=== PATIENT | female | born 1980 | race Hispanic/Latino ===

== ENCOUNTER 2023-07-29 03:02 | Day surgery (SDC) | payer OTHER, SELFPAY ==
--- NOTE | 2023-07-21 13:03 | PC.NURSE ---
Report to the Outpatient Waiting Room, entrance under the green pavilion located off [facility], at time _0730 on date _07/29/23 . Planned Procedure Time: _929 . Time changes happen often and if your time is changed the preop area will call you the afternoon before. - You and your visitor will be asked to self-screen and do not enter if you have any COVID symptoms. - A mask is optional within the hospital at this time. Patients may have clear liquids (water, carbonated beverages, clear teas, apple juice) until 3 hours prior to surgery(6:30 AM) with a maximum of 20 ounces. - No food from midnight until time of surgery - Infants may have breast milk until 4 hours before surgery, formula 6 hours prior to surgery. - Children will be allowed to drink immediately following surgery. If applicable, please bring a bottle or sippy cup to assist with drinking. Juice, water, soda, and popsicles are readily available. For infants on formula, please bring formula the day of surgery. Pacifiers are allowed. Take the following medications with a SIP of water the morning of surgery: ____NONE DO NOT STOP ANY OF YOUR OTHER PRESCRIPTION MEDICATIONS PRIOR TO SURGERY ?EXCEPT THE FOLLOWING Medications to discontinue per physician ___HOLD VITAMIN 3 DAYS PRE OP .LAST DOSE 07/25/23 Please no make-up, nail uzbek, hairspray, perfume, deodorant, or body powder the day of surgery. No jewelry (including any body piercings) or valuables the day of surgery, leave them at home. Please take a shower or bath the night before, or the morning of, surgery with an antibacterial soap. Wear comfortable, loose fitting clothing. Children are encouraged to wear pajamas. - Jewelry must be removed prior to entering the operating room. Rings and piercings that are not removed may be cut off. - The hospital will not accept responsibility for valuables. - Please leave all valuables, including medications, at home the day of surgery. If you are going home after surgery, a licensed water taxi driver must drive you home. - NO public transportation without another adult if you receive anesthesia. - We recommend that an adult stay with you for 24 hours following discharge. - We also recommend that you do not drive, make important decision, drink alcoholic beverages, or take any drugs that were not prescribed by your health care provider for at least 24 hours after your discharge time. For Pediatric surgeries, we recommend two adults accompany the child home. Follow any additional instructions given to you from your surgeon. If you or anyone in your household have experienced Covid symptoms in the past week, please notify your surgeon or the nurse liaison at the phone number below for possible testing. VERBAL AND WRITTEN instructions given to _PATIENT and asked if any additional questions and then verbalized understanding. JOHNATHAN #[id number] PRESS HAND Patient advised to call surgeon office or pre surgery nurse liaison [phone] if any additional questions.
[2023-07-21 13:38] VITALS: BP 106/82; PULSE 73; RESP 18; TEMP 36.8; O2SAT 100; BMI 25.0
[2023-07-29] VITALS (12 sets, daily range): BP systolic 95–125; BP diastolic 56–74; PULSE 54–66; RESP 12–16; TEMP 36.2–36.5; O2SAT 95–100
[2023-07-29] MEDS: GABAPENTIN 300 MG CAPSULE PO (08:30)
[2023-07-29] MEDS: LACTATED RINGERS 1,000 ML 30 ML IV CONT ×2 (08:30→10:41)
[2023-07-29] MEDS: ACETAMINOPHEN 500 MG TABLET 1000 MG PO (08:30)
--- NOTE | 2023-07-29 08:35 | P.PNAN_ITS ---
Anes - Initial Pre Proc Eval Procedure: Operation Date: 07/29/23 09:30 Proposed Procedures p Diagnostic Laparoscopy, Bilateral Salpingectomy - Yudelka Yousif DO Date/Time: 07/29/23 08:35 Surgeon: Yudelka Yousif DO Pre Op Diagnosis: desires surgical sterility Patient Data Age: 42 Gender: F Height: 1.65 m Weight: 68.3 kg Last Vital Signs Temp 36.8 C 07/21/23 13:38 Pulse 73 07/21/23 13:38 Resp 18 07/21/23 13:38 BP 106/82 07/21/23 13:38 Pulse Ox 100 07/21/23 13:38 O2 Del Method Room Air 07/21/23 13:38 Allergies Allergy/AdvReac Type Severity Reaction Status Date / Time No Known Allergies Allergy Verified 07/21/23 12:51 Home Medications Medication Instructions Recorded Confirmed Type vitamin-ferrous fumarate 1 tablet PO DAILY 07/21/23 07/21/23 History 40 mg iron-folic acid 1 mg tablet Patient hx anesthesia problems: none Family hx anesthesia problems: none Results Review: All pre-operative results and documents have been reviewed as part of the pre- operative evaluation. [facility] Social History Social History Smoking status: Never smoker Living arrangements: with family Spiritual care concerns: No Anes - Eval Final PreProcedure Day of Procedure 07/29/23 08:35 Patient weight: normal Heart: regular rate and rhythm Lungs: clear to auscultation Airway: Mallampati scale class II Neurological: alert and oriented Last oral intake: >/= 8 hours ASA classification: I Emergent: no Anesthetic plan: proceed Anesthesia type and monitoring: general ETT and standard monitoring Results Review: All pre-operative results and documents have been reviewed as part of the pre- operative evaluation. Informed Consent: The patient's anesthetic plan and its attendant risks and benefits were discussed with the patient/family/POA. Questions were solicited and answers provided to the satisfaction of the patient/family/POA.
--- NOTE | 2023-07-29 09:26 | WPDHPUPDATE1 ---
History and Physical Update Update Date/Time: 07/29/23 09:26 History and Physical has been reviewed, including an updated exam of the patient. There are NO changes in the patient's condition. Risks, benefits, and alternatives have been discussed and questions answered. Patient agrees to proceed with procedure.
--- NOTE | 2023-07-29 09:27 | PM.IMHP ---
H&P: HPI History of Present Illness Date/Time: 07/29/23 09:27 Chief Complaint: I'm here to have my tubes out Narrative: Fiona is here desiring permanent sterilization via diagnostic laparoscopy, bilateral salpingectomy Review of Systems Review of Systems: All systems reviewed & are unremarkable except as noted in HPI and below [facility] Social History Social History Smoking status: Never smoker Living arrangements: with family Spiritual care concerns: No Meds Home Medications and Allergies Home Medications Medication Instructions Recorded Confirmed Type vitamin-ferrous fumarate 1 tablet PO DAILY 07/21/23 07/21/23 History 40 mg iron-folic acid 1 mg tablet Allergies Allergy/AdvReac Type Severity Reaction Status Date / Time No Known Allergies Allergy Verified 07/29/23 08:45 Vital Signs Vital Signs - 24 hr 07/29/23 08:30 Temperature 36.5 C Pulse Rate 63 Respiratory Rate 14 Blood Pressure 119/74 Pulse Oximetry 100 Oxygen Delivery Room Air Exam Const: General: comfortable and no acute distress Eyes: General: appearance normal, both eyes and all related structures Resp: Effort & Inspection: normal respiratory effort Auscultation: clear to auscultation bilaterally Cardio: Rate: regular rate Rhythm: regular rhythm GI: GI Palp: Yes Soft to palpation Auscultation: normal bowel sounds Skin: General skin exam: normal color and no rashes or lesions noted Assessment and Plan Assessment and plan (1) Sterilization: Code(s): Z30.2 - Encounter for sterilization Status: Acute Plan Diagnostic laparoscopy, bilateral salpingectomy
[2023-07-29] MEDS: KETOROLAC 30 MG/ML VIAL (*BKC) IV PUSH (10:23)
--- NOTE | 2023-07-29 10:32 | P.OP_ITS ---
Procedure Note - Detailed Date of Procedure 07/29/23 Pre-op Diagnosis desires surgical sterility Post-op Diagnosis Same Procedure Performed Diagnostic laparoscopy, bilateral salpingectomy Surgeon Yudelka Yousif, DO Anesthesia General Indications Desires permanent sterilization Findings Normal appearing vulva and vaginal canal. Large cervix. Uterus sounded to 8 cm. Internally, the bowels, liver and pelvic organs were unremarkable. She did appear to have a transsection of her fimbria in the past and there was only a proximal portion of the tube on the left. The ovaries, uterus and cul-de-sac all appeared normal. Description of Procedure Patient was taken to the operating room where she was placed under general anesthesia. She was prepped and draped in the normal sterile fashion in a dorsal lithotomy position. After time-out was performed, speculum was placed in the vagina and the cervix was visualized. The posterior lip of the cervix was grasped with a single-tooth tenaculum. The cervix was dilated to accommodate a disposable uterine manipulator. Once the manipulator was placed, gloves were changed and attention was then turned to the abdomen. The skin above the umbilicus was grasped with 2 penetrating towel clips and the area was injected with local. A small incision was made and a Veress needle was introduced. The saline water drop test was performed to confirm intraperitoneal placement. Once this was successful, the abdomen was brought to a filling pressure of 15 mmHg. The Veress needle was then replaced with a 5 mm trocar which was inserted under direct visualization. Survey of the abdomen revealed no evidence of bowel or vascular injury upon entry. The patient was then placed in steep Trendelenburg position. Additional port sites in the right and left lower quadrants were identified, injected and incised. 5 mm trocars were introduced under direct visualization. Survey of the pelvic organs revealed the above-mentioned findings. There was a small perforation at the midline of the fundus from the uterine sound. This area was made hemostatic with cautery from the LigaSure. The right tube was elevated and was cauterized and transected off using LigaSure. The specimen was passed off through the assistant boys track coach port. Patient appeared to have had a prior fimbriectomy on the left side. Only the proximal portion of the fallopian tube remained which was then elevated and cauterized and transected off. This specimen was also passed off through the port. The fundal perforation was noted to be hemostatic with some Surgicel was placed on as a precaution. The patient will be given a dose of IV doxycycline. Surgical pedicles were reinspected and found to be hemostatic. All instruments and trocars were removed and the gas was allowed to escape. The abdominal incisions were closed with subcuticular 4-0 Monocryl. Uterine manipulator was removed. The patient was taken to the recovery room in stable condition. All instrument and sponge counts were correct at the conclusion of the procedure. This Estimated Blood Loss 5 Urine Output 200 Drains No Packing No Pathology Yes Complications No immediate complications Condition Stable Disposition PACU
[2023-07-29] MEDS: fentaNYL CITRATE INJ (*CRX) 100 MCG/2 ML VIAL 25 MCG IV PUSH ×2 (11:28→11:37)
--- NOTE | 2023-07-29 13:01 | SUR.PHASEII ---
1230 C/O'ING OF LIGHTHEADEDNESS; FLUIDS INFUSING; DRINKING WELL.
--- NOTE | 2023-07-29 13:56 | SUR.PHASEII ---
DR. IVORY'S OFFICE CALLED RE: PATIENT'S QUESTION TO WHETHER IT'S SAFE TO BREASTFEED HER BABY. NURSE GIRMA IN THE OFFICE SUGGESTED THE PATIENT ASK HER PALLIATIVE CARE SPECIALIST. MESSAGE RELAYED TO PATIENT. PATIENT STATES THE LIGHTHEADEDNESS IS SOMEWHAT BETTER. ABLE TO WALK TO BATHROOM.
[2023-07-29] MEDS: ONDANSETRON HCL ODT 4 MG TABLET PO (14:06)
--- NOTE | 2023-07-29 14:17 | SUR.PHASEII ---
PATIENT STATES HER NAUSEA IS SOMEWHAT IMPROVED.
--- NOTE | 2023-07-29 14:18 | SUR.PHASEII ---
1400 DR. IVORY CALLED BACK TO SAY THAT ALL THE PRESCRIPTIONS ARE SAFE WHILE ; MESSAGE RELAYED TO PATIENT.
== END 2023-07-29 14:17 | disposition home or self-care (01) ==
PROVIDERS: Visit Provider Obstetrics & Gynecology Gynecologic Oncology
PROC: (CPT 49320; principal; 2023-07-29 09:30)
DX: Z30.2 Encounter for sterilization (principal)
CPT/HCPCS: 58661; 88302; A9270; J0330; J1885; J2250; J2405; J3010; J7120